=== PATIENT | female | born 2000 | race Caucasian/White ===

== ENCOUNTER 2022-09-08 19:18 | Emergency (ER) | payer OTHER ==
[~2022-09-08] VITALS: Ht 152.4 cm; Wt 59.1 kg
[2022-09-08] MEDS ORDERED: NORCO, ANEXSIA 5/325MG TABLET (HYDROcodone/ACETAMINOPHEN) PO ONE (23:05)
[2022-09-08] MEDS ORDERED: NEOSPORIN OINT 0.9 GM PKT TOP ONE (23:05)
[2022-09-08] MEDS ORDERED: UNRESOLVED CLARIFICATION ENTRY XX STA (23:11)
[2022-09-08 23:32] LABS: BASO # 0.1 10^3/uL (0.0-0.2); BASO % 0.8 % (0.0-1.0); EOS % 0.2 % (0.0-3.0); HEMATOCRIT 41.7 % (36.0-47.0); HEMOGLOBIN 14.1 g/dl (12.0-15.5); LYMPH # 2.9 10^3/uL (1.5-5.0); LYMPH % 25.9 % (24.0-44.0); MEAN CORPUSCULAR HEMOGLOBIN 29.2 pg (27.0-33.0); MEAN CORPUSCULAR HGB CONC 33.8 g/dl (32.0-36.5); MEAN CORPUSCULAR VOLUME 86.3 fl (80.0-96.0); MONO # 0.9 10^3/uL (0.0-0.8); MONO % 7.8 % (2.0-8.0); NEUTROPHILS # 7.3 10^3/uL (1.5-8.5); PLATELET COUNT, AUTOMATED 263 10^3/uL (150-450); RED BLOOD COUNT 4.83 10^6/uL (4.00-5.40); WHITE BLOOD COUNT 11.2 10^3/uL (4.0-10.0)
[2022-09-08] MEDS ORDERED: ISOVUE-370 76% 100ML VIAL As Ordered ONE (23:42)
[2022-09-09 01:34] VITALS: BP 114/74; TEMP 98.4; O2SAT 99
== END 2022-09-09 01:35 | disposition home or self-care (01) ==
LOC: M ED 19:18 → EDBD 19:18 → M ED 09-09 01:35
DX: S50.12XA Contusion of left forearm, initial encounter (principal); V49.40XA Driver injured in collision with unspecified motor vehicles in traffic accident, initial encounter; Y92.410 Unspecified street and highway as the place of occurrence of the external cause; R10.9 Unspecified abdominal pain
CPT/HCPCS: 36415; 73110; 73130; 74177; 80047; 84702; 85025; 99284; Q9967

== ENCOUNTER → 2023-02-27 | Outpatient (REF) | payer OTHER | LOC: M LAB REF 19:31 | PROVIDERS: ATTEND Physician Assistant | DX: R30.0 Dysuria (principal) ==

== ENCOUNTER → 2024-03-24 | Outpatient (REF) | payer OTHER | LOC: M LAB REF 16:18 | PROVIDERS: ATTEND Nurse Practitioner Family | DX: R30.0 Dysuria (principal) ==